=== PATIENT | male | born 2000 | race Two or more races ===

== ENCOUNTER 2024-04-16 11:19 | Emergency (ER) | payer OTHER ==
[~2024-04-16] VITALS: Ht 170.2 cm; Wt 62.1 kg
[2024-04-16] MEDS ORDERED: GUAIFENESIN 200 MG/10 ML BLIST.PACK PO ONE (11:45)
[2024-04-16] MEDS ORDERED: GUAIFENESIN/DEXTROMETHORPHAN 10ML BLIST.PACK PO ONE (11:49)
[2024-04-16 12:37] LABS: HEMATOCRIT 40.5 % (39.0-48.0); HEMOGLOBIN 13.7 g/dL (13-16.00); MEAN CELL VOLUME 85.7 fL (80.0-100.00); MEAN CORPUSCULAR HEMOGLOBIN 29.1 pg (27.00-32.0); MEAN CORPUSCULAR HGB CONC 33.9 g/dl (32.0-36.0); PLATELET COUNT 180 K/uL (150-450); RED BLOOD COUNT 4.72 M/uL (4.00-6.00); RED CELL DISTRIBUTION WIDTH 12.9 % (11.5-14.5)
[2024-04-16] MEDS ORDERED: TUSSIN100 MG/51 PO (12:49)
== END 2024-04-16 13:03 | disposition home or self-care (01) ==
LOC: ER 11:19
PROVIDERS: General Practice
DX: R53.81 Other malaise (principal); J00 Acute nasopharyngitis [common cold]; Z20.822 Contact with and (suspected) exposure to COVID-19